=== PATIENT | male | born 1960 | race Asian ===

== ENCOUNTER 2018-02-07 17:43 | Emergency (ER) | payer OTHER ==
--- NOTE | 2018-02-07 18:25 | EDPHY ---
H & P Stated Complaint: right eye swollen and blistering . r/o shingles Time Seen by Provider: 02/07/18 18:16 HPI/ROS: CHIEF COMPLAINT: "I think I have shingles" HISTORY OF PRESENT ILLNESS: 58-year-old immunocompetent male complaining of 5 days of progressive right facial and eye pain, saw his PCP today, diagnosed with possible zoster, recommend he come to the ER for further evaluation. No pain with extraocular movements. Denies exposure to high speed projectiles. Denies fever chills. Denies otalgia or otorrhea. Denies fever or chills. PRIMARY CARE PROVIDER: Dr. Liberty Jones REVIEW OF SYSTEMS: A ten point review of systems was performed and is negative with the exception of the items mentioned in the HPI PAST MEDICAL & SURGICAL HISTORY: No pertinent medical or surgical history SOCIAL HISTORY: . PHYSICAL EXAM (Prior to examination, patient consented to physical exam, hands were washed and my usual and customary physical exam procedures followed) 1) GENERAL: Well-developed, well-nourished, alert and oriented. Appears to be in no acute distress. 2) HEAD: Normocephalic, right forehead and cheek vesicular lesions, erythema and tenderness. These do not extend onto his scalp for beyond his hairline. 3) ENT: Pupils equal, round, reactive to light bilaterally. Sclera anicteric. Nasopharynx, oropharynx, clear, no lesions. His ears are unremarkable with no lesions in the external auditory canal, the auricle is unaffected. There is no otorrhea. Ears bilaterally with normal tympanic membranes. 4) OCULAR EXAM: Visual Acuity: OS 20/25, od 20/40, OU 20/20 Pupils:equal round and reactive to light, EOMI and pain free EOM Lids: Right periorbital edema noted. He is able to actively open., upper and lower lids were everted and no foreign bodies were visualized, no areas of increased fluorescein uptake. Skin: no proptosis, no periorbital erythema or swelling, no vesicles, no pain with extraocular movements. Conjunctivae: Conjunctiva is injected, negative Laura test. Cornea: exam with fluorescein shows no areas of increased uptake, no abrasion or laceration, no dendrite. Tonometry is 19 Anterior chamber:normal, no hyphema or hypopyon 5)NECK: Full range of motion, no meningeal signs. 6) LUNGS: Clear auscultation bilaterally, no wheezes, no rhonchi, no retractions. 7) HEART: Regular rate and rhythm, no murmur, no heave, no gallop. 8) ABDOMEN: No guarding, no rebound, no focal tenderness, negative McBurney's, negative Lopez's, negative Rovsing's, negative peritoneal sign, 9) MUSCULOSKELETAL: No other lesions visualized peripherally. Moving all extremities, no focal areas of tenderness, no obvious trauma. No peripheral edema or discoloration. 10) BACK: , no visual or palpable abnormality. 11) Psychiatric: Patient is oriented X 3, there is no agitation. DIFFERENTIAL DIAGNOSIS: In no particular include but limited to Enrique Darling syndrome, zoster ophthalmicus, zoster - Personal History Current Tetanus/Diphtheria Vaccine: Unsure Current Tetanus Diphtheria and Acellular Pertussis (TDAP): Unsure - Medical/Surgical History Hx Asthma: No Hx Chronic Respiratory Disease: No Hx Diabetes: No Hx Cardiac Disease: No Hx Renal Disease: No Hx Cirrhosis: No Hx Alcoholism: No Hx HIV/AIDS: No Hx Splenectomy or Spleen Trauma: No - Social History Smoking Status: Never smoked Constitutional: Initial Vital Signs Temperature (C) 37.1 C 02/07/18 17:54 Heart Rate 97 02/07/18 17:54 Respiratory Rate 18 02/07/18 17:54 Blood Pressure 128/90 H 02/07/18 17:54 O2 Sat (%) 93 02/07/18 17:54 O2 Delivery Mode Room Air Allergies/Adverse Reactions: No Known Allergies Allergy (Unverified 02/07/18 17:58) Medical Decision Making ED Course/Re-evaluation: This is an immunocompetent 58-year-old male who already has a prescription for prednisone and Valtrex provided by his PCP which has not been filled via. Recommend he get the prescription filled today. He is given his 1st dose of Valtrex in the ER. The patient was also seen and examined by Dr. Palomo in the ER. On slit-lamp examination is no areas of increased uptake, no dendrites. No pain with extraocular movements, no proptosis. Doubt orbital cellulitis. Doubt zoster ophthalmicus. He has been informed however that he is at risk of this. Recommend antiviral therapy, steroids, follow up with Ophthalmology on Saturday (today is Saturday). If the meantime he develops pain with eye movements, fevers, chills, headache or any other symptoms needs to return to the ER immediately. He feels comfortable being discharged. - Data Points Medications Given: Discontinued Medications Valacyclovir HCl (Valtrex) 1,000 mg PO EDNOW ONE Stop: 02/07/18 19:15 Last Admin: 02/07/18 19:21 Dose: 1,000 mg Departure - Departure Disposition: Home, Routine, Self-Care Clinical Impression: Herpes zoster virus infection of face and ear nerves Condition: Good Instructions: Shingles (ED) Additional Instructions: Fill your prescription for prednisone and Valtrex today. Return to the ER if you develop headaches, pain with eye movements, bulging eyes, or any other symptoms that concern you Referrals: Yariel Pena MD [Medical Doctor] - 02/10/18
[2018-02-07] MEDS ORDERED: valACYclovir 500 MG TAB PO ONE (19:14)
[2018-02-07 19:21] VITALS: BP 135/87
== END 2018-02-07 19:32 | disposition home or self-care (01) ==
DX: B02.29 Other postherpetic nervous system involvement (principal)